=== PATIENT | male | born 2000 | race Hispanic/Latino ===

== ENCOUNTER 2018-07-24 17:02 | Emergency (ER) | payer SELFPAY ==
[2018-07-24] MEDS ORDERED: CEFTRIAXONE SODIUM 500 MG VIAL ONE (17:31)
[2018-07-24] MEDS ORDERED: LIDOCAINE HCL-MPF 1% 2ML VIAL ONE (17:32)
== END 2018-07-24 18:08 | disposition home or self-care (01) ==
LOC: EDH 17:02
DX: N34.2 Other urethritis (principal); J02.9 Acute pharyngitis, unspecified
CPT/HCPCS: 96372; 99283; J0696; J3490

== ENCOUNTER 2018-09-16 12:27 | Emergency (ER) | payer SELFPAY | END 2018-09-16 13:03 | disposition home or self-care (01) | LOC: EDH 12:27 | DX: L60.0 Ingrowing nail (principal); M79.675 Pain in left toe(s) ==

== ENCOUNTER 2018-12-07 04:55 | Emergency (ER) | payer SELFPAY ==
[2018-12-07 05:23] LABS: BASOPHILS % (AUTO) 1.2 % (0.0-5.0); EOSINOPHILS % (AUTO) 2.1 % (0.0-8.0); HEMATOCRIT 43.4 % (42-54); LYMPHOCYTES % (AUTO) 40.2 % (21.0-51.0); MEAN CORPUSCULAR HEMOGLOBIN 30.2 pg (27.0-33.0); MEAN CORPUSCULAR HGB CONC 33.4 g/dL (32.0-36.0); MEAN CORPUSCULAR VOLUME 90.4 fL (80-100); MONOCYTES % (AUTO) 9.1 % (3.0-13.0); NEUTROPHILS % (AUTO) 47.4 % (40.0-77.0); PLATELET COUNT (AUTO) 255 K/uL (130-400); RED CELL DISTRIBUTION WIDTH 13.9 % (11.0-15.5); WHITE BLOOD COUNT (AUTO) 7.2 K/uL (4.8-10.8)
[2018-12-07 05:36] LABS: APPEARANCE,URINE Clear (CLEAR); BILIRUBIN,URINE Negative (NEGATIVE); COLOR,URINE Yellow (YELLOW); GLUCOSE, URINE (UA) Negative (NEGATIVE); KETONES,URINE Trace mg/dL (NEGATIVE); LEUKOCYTE ESTERASE ,URINE Negative (NEGATIVE); NITRATE,URINE Negative (NEGATIVE); OCCULT BLOOD,URINE Negative (NEGATIVE); PROTEIN,URINE Negative (NEGATIVE)
[2018-12-07 05:36] LABS: INR 1.09 (0.85-1.15); PARTIAL THROMBOPLASTIN TIME 30.7 SEC (26.3-35.5); PROTHROMBIN TIME 11.4 SEC (9.6-11.6)
[2018-12-07 05:41] LABS: CREATININE 1.2 mg/dL (0.5-1.5); POTASSIUM 3.3 mmol/L (3.5-5.1)
[2018-12-07 05:43] LABS: AMPHET/METH SCREEN,URINE NEGATIVE (NEGATIVE); BARBITURATE SCREEN, URINE NEGATIVE (NEGATIVE); BENZODIAZEPINES SCREEN,URINE POSITIVE (NEGATIVE); CANNABINOID SCREEN,URINE POSITIVE (NEGATIVE); COCAINE SCREEN,URINE POSITIVE (NEGATIVE); OPIATE SCREEN,URINE POSITIVE (NEGATIVE); PHENCYCLIDINE SCREEN,URINE NEGATIVE (NEGATIVE)
[2018-12-07 05:45] LABS: ALBUMIN 4.5 g/dL (3.5-5.0); BILIRUBIN,TOTAL 0.6 mg/dL (0.2-1.0); TOTAL PROTEIN, SERUM 8.4 g/dL (6.0-8.3)
== END 2018-12-07 08:43 | disposition home or self-care (01) ==
LOC: EDH 04:55
DX: F14.10 Cocaine abuse, uncomplicated (principal); F12.10 Cannabis abuse, uncomplicated; F13.10 Sedative, hypnotic or anxiolytic abuse, uncomplicated; F11.10 Opioid abuse, uncomplicated; R41.0 Disorientation, unspecified; M54.2 Cervicalgia
CPT/HCPCS: 36415; 70450; 71045; 71250; 72125; 74176; 80053; 80305; 81003; 82550; 85025; 85610; 85730; 93005; 96360; 99291; G0480

== ENCOUNTER 2024-11-02 18:54 | Emergency (ER) | payer OTHER ==
[~2024-11-02] VITALS: Ht 175.3 cm; Wt 81.6 kg
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
--- NOTE | 2024-11-02 19:21 | HMCIMG ---
CT CERVICAL SPINE WITHOUT CONTRAST INDICATION: Neck pain TECHNIQUE: Contiguous axial computed tomography imaging using 2 mm slice thickness through the cervical spine. Reconstructions in the sagittal and coronal planes. CT was performed with one or more of the following dose reduction techniques: Automated exposure control, adjustment of the mA and/or kV according to patient size, or use of iterative reconstruction technique. COMPARISON: None. FINDINGS: Normal lordosis is maintained. Vertebral bodies are normal stature without evidence for compression deformity or fracture. No evidence for subluxation. The intervertebral disc heights are well-preserved. The craniocervical junction appears normal. The atlantoaxial articulation is within normal limits. The dens is intact. The pre- and paravertebral soft tissues appear unremarkable. IMPRESSION: No evidence for fracture or subluxation.
--- NOTE | 2024-11-02 19:22 | HMCIMG ---
CT FACIAL BONES WITHOUT CONTRAST INDICATION: Pain TECHNIQUE: 3D helical CT acquisition through the facial bones with coronal and sagittal reformatting. CT was performed with one or more of the following dose reduction techniques: Automated exposure control, adjustment of the mA and/or kV according to patient size, or use of iterative reconstruction technique. COMPARISON: None FINDINGS: No evidence for orbital wall or zygomatic arch fracture. The globes are symmetrical in their appearance, and normal in attenuation. The optic nerves and muscles are normal in caliber. No evidence of preseptal or postseptal mass. No evidence for facial bone fracture. No nasal bone fracture identified. Cribriform plate and parvez mary are intact. Nasal septum is midline. A couple of small right maxillary sinus mucus retention cysts. The visualized sella and suprasellar structures appear unremarkable. IMPRESSION: No evidence for acute facial bone fracture.
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
[2024-11-02 21:21] VITALS: BP 109/65; PULSE 77; RESP 18; TEMP 97.7; O2SAT 97
== END 2024-11-02 21:21 | disposition home or self-care (01) ==
LOC: EDH 18:54
DX: S01.01XA Laceration without foreign body of scalp, initial encounter (principal); Z59.71 Insufficient health insurance coverage; W22.8XXA Striking against or struck by other objects, initial encounter; Y93.89 Activity, other specified; Y92.89 Other specified places as the place of occurrence of the external cause; Y99.8 Other external cause status
CPT/HCPCS: 12001; 70450; 70486; 72125; 99284; 99285; 99291